=== PATIENT | male | born 1985 | race Caucasian/White ===

== ENCOUNTER 2019-03-19 21:01 | Emergency (ER) | payer OTHER ==
[~2019-03-19] VITALS: Ht 182.9 cm; Wt 100.0 kg
[2019-03-19] MEDS ORDERED: LEXAPRO20 MG PO (21:16)
[2019-03-19] MEDS ORDERED: TRILEPTAL150 M1 PO (21:17)
[2019-03-19] MEDS ORDERED: LAMICTAL150 M1 PO (21:18)
[2019-03-19] MEDS ORDERED: LAMICTAL200 M1 PO (21:19)
[2019-03-19] MEDS ORDERED: KLONOPIN1 MG PO (21:19)
[2019-03-19] MEDS ORDERED: RISPERDAL2 MG PO (21:20)
[2019-03-19] MEDS ORDERED: RISPERDAL1 M1 PO (21:20)
[2019-03-19] MEDS ORDERED: MELOXICAM7.5 MG PO (21:21)
[2019-03-19] MEDS ORDERED: ESCITALOPRAM OX10 MG PO (21:33)
[2019-03-19] MEDS ORDERED: ROBITUSSIN AC10 ML PO (22:16)
[2019-03-19] MEDS ORDERED: TAM75CAP PO (22:16)
[2019-03-19 22:20] VITALS: BP 149/80
== END 2019-03-19 22:24 | disposition home or self-care (01) ==
LOC: ED 21:01
DX: J11.1 Influenza due to unidentified influenza virus with other respiratory manifestations (principal); F17.210 Nicotine dependence, cigarettes, uncomplicated